=== PATIENT | female | born 1975 | race Caucasian/White ===

== ENCOUNTER 2019-07-05 09:08 | Outpatient (CLI) | payer OTHER | END 2019-07-05 09:22 | disposition home or self-care (01) | LOC: SONOGRAMA 09:08 | DX: E89.0 Postprocedural hypothyroidism (principal); R59.1 Generalized enlarged lymph nodes ==

== ENCOUNTER 2023-12-14 08:43 | Day surgery (SDC) | payer OTHER ==
[2023-12-14] MEDS ORDERED: fentaNYL CITRATE 50 MCG/ML AMPUL IV PUSH ONE (14:30)
[2023-12-14] MEDS ORDERED: DIPHENHYDRAMINE HCL 50 MG/ML VIAL 1ML IV ONE (14:30)
[2023-12-14] MEDS ORDERED: ONDANSETRON HCL 2 MG/ML VIAL IV ONE (14:30)
[2023-12-14] MEDS ORDERED: MIDAZOLAM HCL 2 MG/2 ML VIAL IV ONE (14:30)
== END 2023-12-14 15:40 | disposition home or self-care (01) ==
LOC: AMB-ENDOS 08:43
PROVIDERS: ATTEND Colon & Rectal Surgery
DX: K63.5 Polyp of colon (principal); Z86.010 Personal history of colon polyps